=== PATIENT | male | born 1955 | race Caucasian/White ===

== ENCOUNTER 2016-04-27 09:56 | Emergency (ER) | payer BC ==
[~2016-04-27] VITALS: Ht 177.8 cm; Wt 101.6 kg
[2016-04-27] MEDS ORDERED: LIDOCAINE700 MG TD (10:16)
[2016-04-27] MEDS ORDERED: TIZANIDINE HCL4 MG PO (10:17)
[2016-04-27] MEDS ORDERED: DICLOFENAC POTA50 MG PO (10:17)
[2016-04-27] MEDS ORDERED: NORCO 5/3251 TABLET PO (11:04)
[2016-04-27 11:28] VITALS: BP 132/82
== END 2016-04-27 11:28 | disposition home or self-care (01) ==
LOC: EME 09:56
DX: S42.214A Unspecified nondisplaced fracture of surgical neck of right humerus, initial encounter for closed fracture (principal); W00.2XXA Other fall from one level to another due to ice and snow, initial encounter; F17.200 Nicotine dependence, unspecified, uncomplicated
CPT/HCPCS: 73030; 99281; 99284

== ENCOUNTER 2017-07-23 07:23 | Inpatient (IN) | payer BC ==
[2017-07-23] VITALS (16 sets, daily range): BP systolic 87–129; BP diastolic 45–80
[~2017-07-23] VITALS: Ht 177.8 cm; Wt 94.0 kg
[~2017-07-23 07:23] MED LIST: DICLOFENAC POTA50 MG PO; LIDOCAINE700 MG TD; NORCO 5/3251 TABLET PO; TIZANIDINE HCL4 MG PO
[2017-07-23 07:40] LABS: BASOPHIL (%) 0.3 % (0-1); EOSINOPHIL (%) 1.2 % (0-5); EOSINOPHIL COUNT 0.2 K/uL (0-0.3); HEMATOCRIT 47.6 % (38.0-50.0); HEMOGLOBIN 16.3 G/DL (12.5-16.6); IMMATURE GRANULOCYTE (%) 0.2 % (0.0-0.7); LYMPHOCYTE (%) 20.5 % (15-42); LYMPHOCYTE COUNT 2.6 K/uL (1.0-2.8); MCH 31.6 PG (29.0-34.0); MCHC 34.2 G/DL (30.0-36.0); MCV 92.2 FL (86-99); MONOCYTE (%) 5.5 % (3-12); MONOCYTE COUNT 0.7 K/uL (0-0.8); NEUTROPHIL (%) 72.3 % (45-76); NEUTROPHIL COUNT 9.3 K/uL (1.8-6.4); PLATELET COUNT 319 K/uL (156-360); RBC DIS.WIDTH-CV 12.7 % (11.8-14.6); RBC DIS.WIDTH-SD 43.2 % (39-53); RED BLOOD COUNT 5.16 M/uL (4.00-5.50); WHITE BLOOD COUNT 12.8 K/uL (4.1-10.2)
[2017-07-23 07:50] LABS: PTT 32.2 SEC (25-37)
[2017-07-23 08:10] LABS: AMYLASE 46 IU/L (1-118); CHLORIDE 103 MEQ/L (99-109); CREATININE 0.8 MG/DL (0.6-1.3); GFR ESTIMATE (CALCULATED) > 59 mL/min/ (58.99-99999); GLUCOSE 212 mg/dL (70-99); LIPASE 48 U/L (1.0-51.0); POTASSIUM 3.4 MEQ/L (3.7-5.4); SERUM ETHYL ALCOHOL < 10 mg/dL; SODIUM 137 MEQ/L (136-147); UREA NITROGEN (BUN) 7 mg/dL (9-23)
[2017-07-23 08:13] LABS: TROP-I INTERPRETATION NEGATIVE; TROPONIN-I 0.02 ng/mL (0.0-0.30)
[2017-07-23] MEDS ORDERED: TYLENOL ARTHRI650 MG PO (09:45)
[2017-07-23 18:26] LABS: TROP-I INTERPRETATION POSITIVE; TROPONIN-I > 50.00 ng/mL (0.0-0.30)
[2017-07-24] VITALS (15 sets, daily range): BP systolic 91–132; BP diastolic 49–83
[2017-07-24 00:51] LABS: TROP-I INTERPRETATION POSITIVE
[2017-07-24 00:59] LABS: TROPONIN-I 42.28 ng/mL (0.0-0.30)
[2017-07-24 06:08] LABS: TROP-I INTERPRETATION POSITIVE
[2017-07-24 06:18] LABS: BASOPHIL (%) 0.3 % (0-1); EOSINOPHIL (%) 1.6 % (0-5); EOSINOPHIL COUNT 0.2 K/uL (0-0.3); HEMATOCRIT 40.7 % (38.0-50.0); IMMATURE GRANULOCYTE (%) 0.2 % (0.0-0.7); LYMPHOCYTE COUNT 2.6 K/uL (1.0-2.8); MCH 31.5 PG (29.0-34.0); MCHC 33.9 G/DL (30.0-36.0); MCV 92.9 FL (86-99); MONOCYTE (%) 7.4 % (3-12); MONOCYTE COUNT 0.7 K/uL (0-0.8); NEUTROPHIL (%) 63.5 % (45-76); PLATELET COUNT 250 K/uL (156-360); RBC DIS.WIDTH-CV 12.9 % (11.8-14.6); RBC DIS.WIDTH-SD 44.2 % (39-53); RED BLOOD COUNT 4.38 M/uL (4.00-5.50); WHITE BLOOD COUNT 9.5 K/uL (4.1-10.2)
[2017-07-24 06:22] LABS: HEMOGLOBIN 13.8 G/DL (12.5-16.6)
[2017-07-24 07:12] LABS: CHLORIDE 109 MEQ/L (99-109); CREATININE 0.7 MG/DL (0.6-1.3); GFR ESTIMATE (CALCULATED) > 59 mL/min/ (58.99-99999); SODIUM 141 MEQ/L (136-147); UREA NITROGEN (BUN) 6 mg/dL (9-23)
[2017-07-24 07:16] LABS: GLUCOSE 104 mg/dL (70-99); POTASSIUM 4.1 MEQ/L (3.7-5.4)
[2017-07-24] MEDS ORDERED: LIDODERM 5% P1 PATCH TD (10:48)
[2017-07-24] MEDS ORDERED: NICOTINE PATCH1 EAC2 TD (11:56)
[2017-07-24] MEDS ORDERED: BRILINTA90 MG PO (11:56)
[2017-07-24] MEDS ORDERED: ASPIR-LOW81 MG PO (11:56)
[2017-07-24] MEDS ORDERED: LISINOPRIL2.5 MG PO (11:56)
[2017-07-24] MEDS ORDERED: NITROGLYCERIN0.4 MG SL (11:56)
[2017-07-24] MEDS ORDERED: ATORVASTATIN CA80 MG PO (11:56)
[2017-07-24] MEDS ORDERED: LOPRESSOR25 MG PO (11:56)
[2017-07-24 14:24] LABS: HEMOGLOBIN A1c (GLYCOHEMOGLOB) 5.6 % (Below 5.7)
== END 2017-07-24 18:07 | disposition home or self-care (01) | DRG 247 ==
LOC: EME 07:23 → ENRESERV 07:43 → CANRESERV 07:43 → EME 08:14 → CATH 08:19 → 2SOUTH 08:36 → 4WEST 08:36 → ENRESERV 08:48 → 4WEST 08:59
PROVIDERS: Emergency Medicine; Internal Medicine Cardiovascular Disease
DX: I21.11 ST elevation (STEMI) myocardial infarction involving right coronary artery (principal); I47.2 Ventricular tachycardia; I21.19 ST elevation (STEMI) myocardial infarction involving other coronary artery of inferior wall; I25.10 Atherosclerotic heart disease of native coronary artery without angina pectoris; F17.210 Nicotine dependence, cigarettes, uncomplicated; Z79.82 Long term (current) use of aspirin; Z95.5 Presence of coronary angioplasty implant and graft; Z79.02 Long term (current) use of antithrombotics/antiplatelets
CPT/HCPCS: 71045; 80048; 81003; 82150; 83036; 83690; 84484; 85025; 85347; 85610; 85730; 86850; 86900; 86901; 87641; 93005; 93306; 99281; 99285; C1725; C1760; C1769; C1874; C1887; C1894; G0480; J0153; J0461; J1644; J2250; J3010; J7030

== ENCOUNTER 2017-09-28 11:05 | Emergency (ER) | payer BC ==
[~2017-09-28] VITALS: Ht 177.8 cm; Wt 94.6 kg
[~2017-09-28 11:05] MED LIST changes: +ASPIR-LOW81 MG PO; +ATORVASTATIN CA80 MG PO; +BRILINTA90 MG PO; +LIDODERM 5% P1 PATCH TD; +LISINOPRIL2.5 MG PO; +LOPRESSOR25 MG PO; +NICOTINE PATCH1 EAC2 TD; +NITROGLYCERIN0.4 MG SL; +TYLENOL ARTHRI650 MG PO
[2017-09-28 11:47] LABS: HEMATOCRIT 40.3 % (38.0-50.0); HEMOGLOBIN 14.1 G/DL (12.5-16.6); MCH 31.3 PG (29.0-34.0); MCV 89.6 FL (86-99); PLATELET COUNT 334 K/uL (156-360); RBC DIS.WIDTH-CV 12.9 % (11.8-14.6); RBC DIS.WIDTH-SD 42.3 % (39-53); WHITE BLOOD COUNT 9.1 K/uL (4.1-10.2)
[2017-09-28 12:04] LABS: CHLORIDE 108 mEq/L (99-109); POTASSIUM 3.9 mEq/L (3.7-5.4); SODIUM 142 mEq/L (136-147)
[2017-09-28 12:06] LABS: GLUCOSE 108 mg/dL (70-99)
[2017-09-28 12:10] LABS: CREATININE 0.8 mg/dL (0.6-1.3); GFR ESTIMATE (CALCULATED) > 59 mL/min/ (58.99-99999)
[2017-09-28 12:11] LABS: UREA NITROGEN (BUN) 6 mg/dL (9-23)
[2017-09-28 12:13] LABS: TROP-I INTERPRETATION NEGATIVE; TROPONIN-I 0.02 ng/mL (0.0-0.30)
[2017-09-28 13:42] LABS: TOTAL PROTEIN 7.1 g/dL (6.4-8.3)
[2017-09-28 13:43] LABS: TOTAL BILIRUBIN 0.5 mg/dL (0.0-1.0)
[2017-09-28 13:44] LABS: ALKALINE PHOSPHATASE 121 IU/L (3-129)
[2017-09-28 13:47] LABS: AST (GOT) 15 IU/L (2-34); DIRECT BILIRUBIN 0.2 mg/dL (0.0-0.3)
[2017-09-28 13:48] LABS: ALT (GPT) 25 IU/L (3-49); LIPASE 141 U/L (1.0-51.0)
[2017-09-28 15:43] LABS: TROP-I INTERPRETATION NEGATIVE; TROPONIN-I < 0.01 ng/mL (0.0-0.30)
[2017-09-28] MEDS ORDERED: ZITHROMAX Z-PA250 MG PO (16:11)
[2017-09-28 16:20] VITALS: BP 135/83
== END 2017-09-28 16:25 | disposition home or self-care (01) ==
LOC: EME 11:05
PROVIDERS: Physician Assistant
DX: J18.9 Pneumonia, unspecified organism (principal); K85.90 Acute pancreatitis without necrosis or infection, unspecified; I25.2 Old myocardial infarction; Z95.5 Presence of coronary angioplasty implant and graft; Z79.82 Long term (current) use of aspirin; Z87.891 Personal history of nicotine dependence
CPT/HCPCS: 71046; 71275; 80048; 80076; 83690; 84484; 85027; 93005; 94640; 99281; 99285; J0696; J2930; J7040